=== PATIENT | female | born 1985 | race Hispanic/Latino ===

== ENCOUNTER 2018-11-23 08:09 | Day surgery (SDC) | payer BC ==
[2018-11-22 12:40] VITALS: BMI 34.2
[2018-11-23 09:18] LABS: BASO % 0.3 % (0.0-2.0); EOS # 0.2 K/uL (0.0-0.7); EOS % 2.7 % (0.0-4.0); HEMOGLOBIN 9.9 g/dL (12.0-16.0); LYMPH # 1.6 K/uL (1.0-4.3); LYMPH % 26.9 % (20.0-40.0); MEAN CELL VOLUME 80.6 fl (81.0-99.0); MEAN CORPUSCULAR HEMOGLOBIN 26.8 pg (27.0-31.0); MEAN CORPUSCULAR HGB CONC 33.2 g/dL (33.0-37.0); MEAN PLATELET VOLUME 7.3 fl (7.2-11.7); MONO # 0.5 K/uL (0.0-0.8); NEUT # 3.7 K/uL (1.8-7.0); NEUT % 62.1 % (50.0-75.0); RBC 3.68 Mil/uL (3.80-5.20); RED CELL DISTRIBUTION WIDTH 13.5 % (11.5-14.5)
[2018-11-23] MEDS ORDERED: Midazolam 2 MG/2 ML VIAL ONE (09:42)
[2018-11-23] MEDS ORDERED: Propofol 10 mg/ml Inj (20 ML) ONE (09:42)
[2018-11-23] MEDS ORDERED: Lidocaine 2% Jelly (5 ml) TOP ONE (09:43)
[2018-11-23] MEDS ORDERED: Lactated Ringer's 1,000 ML IV ONE ×2 (10:19)
[2018-11-23] MEDS ORDERED: Oxycodone/Acetaminophen 5/325 mg Tab PO ONE (11:01)
[2018-11-23] MEDS ORDERED: HYDROmorphone 0.5 mg/0.5 ml ISec IVP PRN (11:03)
[2018-11-23] MEDS: Lactated Ringer's 1,000 ML IV SCH ×2 (11:45→13:00)
[2018-11-23 14:58] VITALS: RESP 18
[2018-11-23 14:59] VITALS: O2SAT 98
[2018-11-23 15:04] VITALS: BP 109/64; PULSE 63; TEMP 97.7
--- NOTE | 2018-11-23 15:14 | OP ---
PROCEDURE DATE: 11/23/18 PREOPERATIVE DIAGNOSIS: Missed . POSTOPERATIVE DIAGNOSIS: Missed . OPERATION PERFORMED: Suction dilation and curettage. SURGEON: London Francis MD ANESTHESIA: General. ANESTHESIA ADMINISTERED BY: Omar Duncan MD ESTIMATED BLOOD LOSS: 50 mL. INTRAVENOUS FLUIDS: The patient received approximately 800 mL of D5 LR intraoperatively. OPERATIVE FINDINGS: Normal external female genitalia. Cervix is approximately 1 cm dilated. Vagina pink, scant blood noted. No adnexal masses appreciated. DESCRIPTION OF PROCEDURE: After informed consent was obtained, the patient was taken to the operating room where she was given general anesthesia. She was then prepped and draped in usual sterile fashion. Weighted speculum was then inserted into the vagina. Cervix was visualized and grasped with a single-tooth tenaculum. The cervix was then gently dilated and a #9 suction curette was introduced into the uterine cavity and rotated in clockwise fashion. A sharp curettage was performed until a gritty texture was noted. The suction device was re-introduced to remove any remaining debris. All instruments were then removed from vagina. The tenaculum site was inspected, hemostasis was noted. The patient was taken to recovery room in awake and stable condition. London Francis MD
== END 2018-11-23 14:45 | disposition home or self-care (01) ==
LOC: H.OPSURG 08:09
PROVIDERS: ATTEND Obstetrics & Gynecology Gynecology
DX: O02.1 Missed abortion (principal)
CPT/HCPCS: 36415; 59820; 85025; 86850; 86900; 88305; J2001; J2210; J2250; J2704; J2765; J2792; J3010; J7030; J7120